=== PATIENT | male | born 1955 | race Caucasian/White ===

== ENCOUNTER → 2017-01-14 | Outpatient (CLI) | payer MEDICARE ==
[~2017-01-14] MED LIST: AMLO10TA2 PO; AMLO1CAP2 PO; ATOR20TA9 PO; CETI10TA18 PO; CHOL20003 PO; DIVA500T2 PO; DIVA500T9 PO; DONE5TAB7 PO; DOXY100T PO; FLUO10CA13 PO; GUAI200T3 PO; HYDR-882 PO; HYDR12.53 PO; IBUP800T PO; LAMO200T49 PO; LEVO100T PO; LEVO75TA5 PO; LISI-170 PO; LISI40TA PO; LURA60TA PO; METF500T4 PO; METF750T2 PO; MIRT15TA6 PO; OMEP-110 PO; PRAV10TA2 PO; PRAZ1CAP2 PO; PRED10TA PO; SIMV10TA3 PO; SUCR1TAB PO; SUVO10TA PO; TRAZ50TA18 PO; ZOLP10TA5 PO
== END | disposition home or self-care (01) ==
LOC: STAR 13:07
PROVIDERS: ATTEND Internal Medicine Gastroenterology
DX: Z01.811 Encounter for preprocedural respiratory examination (principal); C18.7 Malignant neoplasm of sigmoid colon; I10 Essential (primary) hypertension; K52.832 Lymphocytic colitis
CPT/HCPCS: 71020; 93005

== ENCOUNTER → 2017-03-03 | Outpatient (CLI) | payer MEDICARE ==
[~2017-03-03] MED LIST changes: +CHOL2000 PO; -CHOL20003 PO; +DIVA-68 PO; -DIVA500T9 PO; +REGADENOSON 0.4 MG/5 ML SYRINGE ONE
== END | disposition home or self-care (01) ==
LOC: CFH 07:54
PROVIDERS: ATTEND Internal Medicine Cardiovascular Disease
DX: Z01.810 Encounter for preprocedural cardiovascular examination (principal); R06.02 Shortness of breath
CPT/HCPCS: 78452; 93017; A9502; J2785

== ENCOUNTER → 2017-04-14 | Outpatient (CLI) | payer MEDICARE ==
[~2017-04-14] MED LIST changes: -REGADENOSON 0.4 MG/5 ML SYRINGE ONE
== END | disposition home or self-care (01) ==
LOC: STAR 14:46
PROVIDERS: ATTEND Internal Medicine Gastroenterology
DX: Z01.818 Encounter for other preprocedural examination (principal); C18.7 Malignant neoplasm of sigmoid colon; J45.909 Unspecified asthma, uncomplicated; F41.9 Anxiety disorder, unspecified
CPT/HCPCS: 93005

== ENCOUNTER 2017-04-21 12:52 | Day surgery (SDC) | payer MEDICARE ==
[~2017-04-21] VITALS: Ht 180.3 cm; Wt 119.0 kg
[2017-04-21] MEDS ORDERED: LACTATED RINGERS 1,000 ML IV SCH (13:12)
[2017-04-21 13:31] VITALS: BP 124/81
[2017-04-21] MEDS ORDERED: PROPOFOL 10 MG/ML, 20ML ONE (14:12)
[2017-04-21] MEDS ORDERED: OXYcodone 5 MG/5 ML ORAL.SOL UDC PO PRN (14:30)
[2017-04-21] MEDS ORDERED: FENTANYL PF 100 MCG/2ML IV PRN (14:30)
[2017-04-21] MEDS ORDERED: MIDAZOLAM 1 MG/ML, 2ML IV PRN (14:30)
[2017-04-21] MEDS ORDERED: LABETALOL 5MG/ML, 20ML IV PRN (14:30)
[2017-04-21] MEDS ORDERED: HYDROmorphone 1 MG/ML, 1ML IV PRN (14:30)
[2017-04-21] MEDS ORDERED: hydrALAzine 20 MG/ML, 1ML IV PRN (14:30)
[2017-04-21] MEDS ORDERED: ONDANSETRON 2MG/ML, 2ML IVPush PRN (14:30)
== END 2017-04-21 17:00 ==
LOC: OUT 12:52
PROVIDERS: ATTEND Internal Medicine Gastroenterology
DX: Z08 Encounter for follow-up examination after completed treatment for malignant neoplasm (principal); D12.4 Benign neoplasm of descending colon; Z86.010 Personal history of colon polyps; I10 Essential (primary) hypertension; E11.9 Type 2 diabetes mellitus without complications; J44.9 Chronic obstructive pulmonary disease, unspecified; E03.9 Hypothyroidism, unspecified; E66.01 Morbid (severe) obesity due to excess calories; Z68.37 Body mass index [BMI] 37.0-37.9, adult; Z86.73 Personal history of transient ischemic attack (TIA), and cerebral infarction without residual deficits; Z88.1 Allergy status to other antibiotic agents
CPT/HCPCS: 45385; 82962; 88305; J2704

== ENCOUNTER → 2017-10-12 | Outpatient (CLI) | payer MEDICARE ==
[~2017-10-12] MED LIST changes: +IBUP-1223 PO; -IBUP800T PO
== END | disposition home or self-care (01) ==
LOC: CFH 15:24
PROVIDERS: ATTEND Internal Medicine Critical Care Medicine
DX: J47.9 Bronchiectasis, uncomplicated (principal); J98.11 Atelectasis; M51.36 Other intervertebral disc degeneration, lumbar region
CPT/HCPCS: 71250